=== PATIENT | male | born 1955 | race Caucasian/White ===

== ENCOUNTER 2022-05-30 12:20 | Outpatient (CLI) | payer MEDICARE, BC, SELFPAY ==
--- NOTE | ~2022-05-30 | MR_ITS ---
EXAMINATION: MR pelvis wo/w con DATE: 05/30/2022 13:16 INDICATION: Prostate cancer for radiation treatment planning. TECHNIQUE: Magnetic resonance imaging (MRI) of the pelvis was performed with 100 mL Omnipaque-350 int ravenous contrast. Full-field sequences of the pelvis included axial and coronal T2-weighted SS FSE, axial, sagittal and coronal 2D FIESTA, axial 2D FIESTA FS, axial SSFSE-IR JOSHUA, axial dual-echo T1-jb ghted FSPGR, axial and coronal T1 weighted LAVA, 3D axial T2 Cube, axial diffusion-weighted SE with a pparent diffusion coefficient (ADC) maps. Postcontrast sequences included a time course axial T1-weig hted LAVA and sagittal and coronal T1-weighted LAVA. COMPARISON: None. FINDINGS: Prostatomegaly measuring 4.3 x 4.0 cm in maximal axial dimensions. Lobulated T2 hyperintense collecti on of likely hydrogel positioned between the prostate in the anterior wall of the rectum which measur es 4.7 cm craniocaudally, 3.8 cm left to right and 1.7 cm in maximal AP mention. Bladder is normal. R ecess portion of the bowels including the appendix are normal. There is relatively symmetric increase d fat within the bilateral inguinal canals. No pathologically enlarged pelvic or inguinal lymphadenop athy. Moderate lumbar spondylosis with 2 mm anterolisthesis L5 on S1. Normal bone marrow signal. IMPRESSION: 1. 4.7 x 3.8 x 1.7 cm hydrogel spacer positioned between the enlarged prostate and the rectum. No sera dent metastatic disease. Reviewed, dictated and finalized at location A. IMPRESSION: 1. 4.7 x 3.8 x 1.7 cm hydrogel spacer positioned between the enlarged prostate and the rectum. No evident metastatic disease.
== END 2022-05-30 12:21 | disposition home or self-care (01) ==
PROVIDERS: PCP Internal Medicine; Visit Provider Radiology Radiation Oncology
DX: C61 Malignant neoplasm of prostate (principal)
CPT/HCPCS: 72197; A9577

== ENCOUNTER 2024-02-21 01:58 | Day surgery (SDC) | payer MEDICARE, BC, SELFPAY ==
[2024-01-29 14:21] VITALS: BMI 38.0
[2024-02-21 09:45] VITALS: BP 112/72; PULSE 83; RESP 18; TEMP 36.1; O2SAT 99
[2024-02-21] MEDS: LACTATED RINGERS 1,000 ML 150 ML IV CONT (09:57)
[2024-02-21 09:58] LABS: Glucose Point of Care 140 mg/dl (65-105)
--- NOTE | 2024-02-21 10:02 | P.PNAN_ITS ---
Anes - Initial Pre Proc Eval Procedure: Operation Date: 02/21/24 11:00 Proposed Procedures p Screening Colonoscopy - Zhang Saba MD Date/Time: 02/21/24 10:02 Surgeon: Zhang Saba MD Pre Op Diagnosis: personal hx colon polyps Patient Data Age: 69 Gender: M Height: 1.83 m Weight: 129.5 kg Last Vital Signs Temp 36.1 C L 02/21/24 09:45 Pulse 83 02/21/24 09:45 Resp 18 02/21/24 09:45 BP 112/72 02/21/24 09:45 Pulse Ox 99 02/21/24 09:45 O2 Del Method Room Air 02/21/24 09:45 Allergies Allergy/AdvReac Type Severity Reaction Status Date / Time No Known Allergies Allergy Verified 02/21/24 09:40 Home Medications ?Medication ?Instructions ?Recorded ?Confirmed ?Type atorvastatin 40 mg tablet 40 mg PO DAILY cholesterol 01/29/24 02/21/24 History dapagliflozin propanediol 10 mg 10 mg PO DAILY 01/29/24 02/21/24 History tablet glimepiride 1 mg tablet 1 mg PO .BID before meals 01/29/24 02/21/24 History lisinopril 20 mg tablet 20 mg PO HS 01/29/24 02/21/24 History metformin 500 mg tablet,extended 1,000 mg PO BID 01/29/24 02/21/24 History release 24 hr semaglutide 2 mg/dose (8 mg/3 mL) 2 mg subcut .COMPLEX 01/29/24 02/21/24 History subcutaneous pen injector (Ozempic) Laboratory Tests 02/21/24 09:55 POC Capillary Glucose 140 H mg/dl (65-105) Patient hx anesthesia problems: none Family hx anesthesia problems: none Results Review: All pre-operative results and documents have been reviewed as part of the pre-operative evaluation. [facility] Past Medical History Medical History (Updated 02/21/24 @ 10:03 by Lester Gates MD) TRAVON (obstructive sleep apnea) HTN (hypertension) Diabetes Obesity Social History Social History Smoking packs per day: 1 Smoking cigarettes per day: 20.0 Years smoked: 25 Smoking pack-years: 25.00 Tobacco type: cigarettes Alcohol intake: unknown Substance use: never Substance use type: does not use Living arrangements: with family Spiritual care concerns: No Anes - Eval Final PreProcedure Day of Procedure 02/21/24 10:02 Patient weight: obese Heart: regular rate and rhythm Lungs: clear to auscultation Airway: Mallampati scale class II Neurological: alert and oriented Last oral intake: >/= 8 hours ASA classification: III Emergent: no Anesthetic plan: proceed Anesthesia type and monitoring: general GIVS and standard monitoring Results Review: All pre-operative results and documents have been reviewed as part of the pre- operative evaluation. Informed Consent: The patient's anesthetic plan and its attendant risks and benefits were discussed with the patient/family/POA. Questions were solicited and answers provided to the satisfaction of the patient/family/POA.
--- NOTE | 2024-02-21 10:05 | PM.IMHP ---
H&P: HPI History of Present Illness Date/Time: 02/21/24 10:05 Chief Complaint: History of colon polyps Narrative: The patient has a history of colonic polyps, the last colonoscopy was 5 years ago. There is no family history of colorectal cancer. Review of Systems Review of Systems: All systems reviewed & are unremarkable except as noted in HPI and below PMFSH Past Medical History Medical History (Updated 02/21/24 @ 10:06 by Zhang Saba MD) TRAVON (obstructive sleep apnea) HTN (hypertension) Diabetes Obesity Social History Social History Smoking packs per day: 1 Smoking cigarettes per day: 20.0 Years smoked: 25 Smoking pack-years: 25.00 Tobacco type: cigarettes Alcohol intake: unknown Substance use: never Substance use type: does not use Living arrangements: with family Spiritual care concerns: No Meds Home Medications and Allergies Home Medications ?Medication ?Instructions ?Recorded ?Confirmed ?Type atorvastatin 40 mg tablet 40 mg PO DAILY cholesterol 01/29/24 02/21/24 History dapagliflozin propanediol 10 mg 10 mg PO DAILY 01/29/24 02/21/24 History tablet glimepiride 1 mg tablet 1 mg PO .BID before meals 01/29/24 02/21/24 History lisinopril 20 mg tablet 20 mg PO HS 01/29/24 02/21/24 History metformin 500 mg tablet,extended 1,000 mg PO BID 01/29/24 02/21/24 History release 24 hr semaglutide 2 mg/dose (8 mg/3 mL) 2 mg subcut .COMPLEX 01/29/24 02/21/24 History subcutaneous pen injector (Ozempic) Allergies Allergy/AdvReac Type Severity Reaction Status Date / Time No Known Allergies Allergy Verified 02/21/24 09:40 Vital Signs Vital Signs - 24 hr 02/21/24 09:45 Temperature 97 F L Pulse Rate 83 Respiratory Rate 18 Blood Pressure 112/72 Pulse Oximetry 99 Oxygen Delivery Room Air Exam Const: General: cooperative and healthy appearing Resp: Effort & Inspection: normal respiratory effort and able to speak in complete sentences Auscultation: clear to auscultation bilaterally Cardio: Rate: regular rate Rhythm: regular rhythm GI: Inspection: normal to inspection GI Palp: No No hepatosplenomegaly present Auscultation: normal bowel sounds Rectal Exam: deferred Skin: General skin exam: normal color Psych: Appearance: grossly normal Mental Status: mental status grossly normal Assessment and Plan Assessment and plan (1) History of colonic polyps: Code(s): Z86.0100 - Personal history of colon polyps, unspecified Status: Acute Assessment and Plan: The patient is deemed a good candidate for the procedure. Consent signed. Will proceed.
--- NOTE | 2024-02-21 10:35 | PM.IMHP ---
H&P: HPI History of Present Illness Date/Time: 02/21/24 10:35 Chief Complaint: History of colon polyps Narrative: The patient has a history of colonic polyps, the last colonoscopy was about 5 years ago. There is no family history of colorectal cancer Review of Systems Review of Systems: All systems reviewed & are unremarkable except as noted in HPI and below PMFSH Past Medical History Medical History (Updated 02/21/24 @ 10:06 by Zhang Saba MD) TRAVON (obstructive sleep apnea) HTN (hypertension) Diabetes Obesity Social History Social History Smoking packs per day: 1 Smoking cigarettes per day: 20.0 Years smoked: 25 Smoking pack-years: 25.00 Tobacco type: cigarettes Alcohol intake: unknown Substance use: never Substance use type: does not use Living arrangements: with family Spiritual care concerns: No Meds Home Medications and Allergies Home Medications ?Medication ?Instructions ?Recorded ?Confirmed ?Type atorvastatin 40 mg tablet 40 mg PO DAILY cholesterol 01/29/24 02/21/24 History dapagliflozin propanediol 10 mg 10 mg PO DAILY 01/29/24 02/21/24 History tablet glimepiride 1 mg tablet 1 mg PO .BID before meals 01/29/24 02/21/24 History lisinopril 20 mg tablet 20 mg PO HS 01/29/24 02/21/24 History metformin 500 mg tablet,extended 1,000 mg PO BID 01/29/24 02/21/24 History release 24 hr semaglutide 2 mg/dose (8 mg/3 mL) 2 mg subcut .COMPLEX 01/29/24 02/21/24 History subcutaneous pen injector (Ozempic) Allergies Allergy/AdvReac Type Severity Reaction Status Date / Time No Known Allergies Allergy Verified 02/21/24 09:40 Vital Signs Vital Signs - 24 hr 02/21/24 09:45 Temperature 97 F L Pulse Rate 83 Respiratory Rate 18 Blood Pressure 112/72 Pulse Oximetry 99 Oxygen Delivery Room Air Exam Const: General: cooperative and healthy appearing Resp: Effort & Inspection: normal respiratory effort and able to speak in complete sentences Auscultation: clear to auscultation bilaterally Cardio: Rate: regular rate Rhythm: regular rhythm GI: Inspection: normal to inspection GI Palp: No No hepatosplenomegaly present Auscultation: normal bowel sounds Rectal Exam: deferred Skin: General skin exam: normal color Psych: Appearance: grossly normal Mental Status: mental status grossly normal Assessment and Plan Assessment and plan (1) History of colonic polyps: Code(s): Z86.0100 - Personal history of colon polyps, unspecified Status: Acute Assessment and Plan: The patient is deemed a good candidate for the procedure. Consent signed. Will proceed.
[2024-02-21 11:02] VITALS: BP 114/56; PULSE 80; RESP 22; O2SAT 99
[2024-02-21 11:12] VITALS: BP 103/66; PULSE 74; RESP 18; O2SAT 98
[2024-02-21 11:22] VITALS: BP 105/60; PULSE 78; RESP 20; O2SAT 99
== END 2024-02-21 11:31 | disposition home or self-care (01) ==
PROVIDERS: PCP Internal Medicine; Visit Provider Internal Medicine Gastroenterology
PROC: 0DJD8ZZ Inspection of Lower Intestinal Tract, Via Natural or Artificial Opening Endoscopic (ICD-10-PCS; CPT 45378; principal; 2024-02-21 11:00)
DX: Z12.11 Encounter for screening for malignant neoplasm of colon (principal); K64.8 Other hemorrhoids; K57.30 Diverticulosis of large intestine without perforation or abscess without bleeding; I10 Essential (primary) hypertension; E11.9 Type 2 diabetes mellitus without complications; G47.33 Obstructive sleep apnea (adult) (pediatric); F17.210 Nicotine dependence, cigarettes, uncomplicated; E66.9 Obesity, unspecified; Z68.38 Body mass index [BMI] 38.0-38.9, adult; Z79.84 Long term (current) use of oral hypoglycemic drugs; Z79.85 Long-term (current) use of injectable non-insulin antidiabetic drugs; Z86.0100 Personal history of colon polyps, unspecified
CPT/HCPCS: G0105; 82948; J2003; J2371; J2704; J7120